=== PATIENT | male | born 1995 | race African-American/Black ===

== ENCOUNTER 2016-09-17 22:07 | Emergency (ER) | payer MEDICAID ==
[~2016-09-17] VITALS: Ht 170.2 cm; Wt 80.0 kg
== END 2016-09-17 23:30 | disposition left against medical advice (07) ==
LOC: ER 22:07
DX: H57.8 Other specified disorders of eye and adnexa (principal); Z53.21 Procedure and treatment not carried out due to patient leaving prior to being seen by health care provider